=== PATIENT | female | born 1975 | race Caucasian/White ===

== ENCOUNTER 2024-03-28 08:58 | Outpatient (CLI) | payer BC, SELFPAY | END 2024-03-28 08:59 | disposition home or self-care (01) | PROVIDERS: PCP Family Medicine; Visit Provider Physician Assistant | DX: N89.8 Other specified noninflammatory disorders of vagina (principal); R35.0 Frequency of micturition; Z13.6 Encounter for screening for cardiovascular disorders; Z13.1 Encounter for screening for diabetes mellitus; Z13.29 Encounter for screening for other suspected endocrine disorder | CPT/HCPCS: 80061; 82947; 84443 ==

== ENCOUNTER 2024-04-15 14:55 | Outpatient (CLI) | payer BC, SELFPAY ==
--- NOTE | 2024-04-15 15:00 | CRLHL7_ITS ---
For Patients: As a result of the Cures Act, medical imaging exams and procedure reports are released immediately into your electronic medical record. You may view this report before your referring provider. If you have questions, please contact your health care provider. BILATERAL SCREENING MAMMOGRAM WITH COMPUTER-AIDED DETECTION AND TOMOSYNTHESIS TECHNIQUE: CC and MLO views were obtained. These mammographic images have been obtained using full-field digital technique. These mammographic images were interpreted with the benefit of computer-aided detection. Breast Tomosynthesis was used in this interpretation. COMPARISON FILM: 12/26/22, 12/16/21, 12/15/20. FINDINGS: There are scattered areas of fibroglandular density IMPRESSION: There is no radiographic evidence for malignancy. ASSESSMENT: BI-RADS Category 1: Negative RECOMMENDATION: Routine screening mammogram in 1 year. A lay language report of this examination will be provided to the patient. Rigoberto Murcia M.D. Diagnostic Radiologist [email or web address] Transcribed: 2:22 p.tanner garcía/Dictated by: Rigoberto Murcia MD @ 04/16/2024 8:50:00 AM (Electronically Signed)
== END 2024-04-15 14:56 | disposition home or self-care (01) ==
LOC: MAMMO 14:55
PROVIDERS: PCP Family Medicine; Visit Provider Obstetrics & Gynecology
DX: Z12.31 Encounter for screening mammogram for malignant neoplasm of breast (principal)
CPT/HCPCS: 77063; 77067